=== PATIENT | female | born 1940 | race Caucasian/White ===

== ENCOUNTER 2017-11-10 15:07 | Inpatient (IN) | payer OTHER ==
[~2017-11-10] VITALS: Ht 167.6 cm; Wt 72.1 kg
[~2017-11-10 15:07] MED LIST: AMIT75TA2 PO; CITA20TA3 PO; LEVO25TA6 PO; PREG50CA PO
[2017-11-10] MEDS ORDERED: SODIUM CHLORIDE 0.9% 500 ML IVB ONE (18:55)
[2017-11-10] MEDS ORDERED: ONDANSETRON HCL 4 MG/2 ML VIAL IV ONE (19:00)
[2017-11-10] MEDS ORDERED: MORPHINE SULF INJ 2 MG/ML SYRINGE 1ML IV ONE (19:00)
[2017-11-10 20:54] LABS: Basophils # (auto) 0 uL; Basophils % (auto) 0.2 % (0.0-2.0); Eosinophils # (auto) 0.1 uL; Eosinophils % (auto) 0.6 % (0.0-7.0); Hematocrit 38.3 % (36.0-46.0); Hemoglobin 13.1 g/dL (12.2-16.2); Lymphocytes # (auto) 0.8 uL; Lymphocytes % (auto) 7.3 % (10.0-50.0); Mean Corpuscular Hemoglobin 31.1 pg (28.0-32.0); Mean Corpuscular Hgb Conc. 34.2 g/dL (32.0-36.0); Mean Corpuscular Volume 91.2 fL (80.0-100.0); Monocytes # (auto) 0.6 uL; Monocytes % (auto) 6.1 % (0.0-12.0); Neutrophils # (auto) 8.8 uL; Neutrophils % (auto) 85.8 % (37.0-80.0); Nucleated Red Blood Cells % 0.1 %; Platelet Count (auto) 198 10^3/uL (140-450); Red Cell Distribution Width 12.6 % (11.8-14.3); White Blood Cell 10.3 10^3/uL (4.4-10.8)
[2017-11-10 20:58] LABS: Alanine Aminotransferase 23 U/L (13-56); Albumin 3.8 g/dL (3.4-5.0); Anion Gap 8 (5-15); Aspartate Aminotransferase 29 U/L (15-37); BUN/Creatinine Ratio 6.5; Blood Urea Nitrogen 7 mg/dL (7-18); Calcium 8.8 mg/dL (8.5-10.1); Carbon Dioxide 29 mmol/L (21-32); Chloride 101 mmol/L (98-107); GFR African American 64 mL/min; GFR Non-African American 53 mL/min; Glucose 104 mg/dL (74-106); Magnesium 2.2 mg/dL (1.6-2.6); Potassium 4.1 mmol/L (3.5-5.1); Sodium 138 mmol/L (136-145)
[2017-11-10] MEDS ORDERED: DOCUSATE SOD 100 MG CAP PO PRN (21:00)
[2017-11-10] MEDS ORDERED: cloNIDine HCL 0.1 MG TAB PO PRN (21:00)
[2017-11-10] MEDS ORDERED: HYDROcodone-ACET 5/325MG TAB PO PRN (21:00)
[2017-11-10] MEDS ORDERED: ACETAMINOPHEN 325 MG TAB PO PRN (21:00)
[2017-11-10] MEDS ORDERED: ONDANSETRON HCL 4 MG/2 ML VIAL IV PRN (21:00)
[2017-11-10 21:02] LABS: Alkaline Phosphatase 75 U/L (45-117); Bilirubin, Total 0.5 mg/dL (0.2-1.0); Total Protein 7.4 g/dL (6.4-8.2)
[2017-11-10] MEDS: FAMOTIDINE 20 MG TAB PO SCH (22:00)
[2017-11-10 22:10] VITALS: BP 148/83
[2017-11-10 22:30] LABS: INR 1.04 (0.9-1.15); Partial Thromboplastin Time 25.9 sec (23.78-33.04); Prothrombin Time 11.1 sec (9.27-12.13)
[2017-11-10] MEDS: TEMAZEPAM 15 MG CAP PO PRN (23:44)
[2017-11-11 05:00] VITALS: BP 133/77
[2017-11-11] MEDS: MORPHINE SULF INJ 2 MG/ML SYRINGE 1ML IV PRN ×3 (05:02→17:15)
[2017-11-11 09:00] VITALS: BP 123/66
[2017-11-11] MEDS: ENOXAPARIN SOD 40 MG/0.4 ML SYRINGE SC SCH (10:34)
[2017-11-11] MEDS: FAMOTIDINE 20 MG TAB PO SCH ×2 (10:34→21:34)
[2017-11-11] MEDS: DOCUSATE SOD 100 MG CAP PO SCH ×2 (10:34→21:47)
[2017-11-11 13:00] VITALS: BP 137/76
[2017-11-11] MEDS ORDERED: DIAZEPAM 5 MG/ML 2ML SYRG IV ONE (15:15)
[2017-11-11 16:15] LABS: Urine Bacteria FEW /hpf (None Seen); Urine Blood Negative /uL (Negative); Urine Specific Gravity 1.004 (1.001-1.035); Urine WBC 1 /hpf (0 - 5)
[2017-11-11 17:00] VITALS: BP 130/68
[2017-11-11] MEDS ORDERED: BUPR100T14 PO (18:05)
[2017-11-11] MEDS ORDERED: ALBU2TAB4 PO (18:05)
[2017-11-11] MEDS ORDERED: LEVO50TA7 PO (18:05)
[2017-11-11] MEDS ORDERED: ATOR10TA52 PO (18:05)
[2017-11-11] MEDS ORDERED: EST0625T PO (18:05)
[2017-11-11] MEDS ORDERED: AMIT75TA2 PO (18:05)
[2017-11-11] MEDS ORDERED: ASPI81TA27 PO (18:05)
[2017-11-11] MEDS ORDERED: OMEP20TA PO (18:05)
[2017-11-11] MEDS ORDERED: CHOL50007 PO (18:13)
[2017-11-11] MEDS ORDERED: BUDE0.5S IN (18:13)
[2017-11-11] MEDS ORDERED: CARI350T22 PO (18:13)
[2017-11-11] MEDS ORDERED: ESCI10TA53 PO (18:13)
[2017-11-11] MEDS ORDERED: GABA300C10 PO (18:13)
[2017-11-11] MEDS ORDERED: LORA-622 PO (18:13)
[2017-11-11] MEDS: TEMAZEPAM 15 MG CAP PO PRN (21:43)
[2017-11-11 22:00] VITALS: BP 123/70
[2017-11-12 05:36] VITALS: BP 124/64
[2017-11-12 09:00] VITALS: BP 114/69
[2017-11-12] MEDS: ENOXAPARIN SOD 40 MG/0.4 ML SYRINGE SC SCH (10:00)
[2017-11-12] MEDS: FAMOTIDINE 20 MG TAB PO SCH (10:26)
[2017-11-12] MEDS: DOCUSATE SOD 100 MG CAP PO SCH (10:26)
[2017-11-12 13:00] VITALS: BP 118/59
[2017-11-12 15:21] VITALS: BP 114/69
== END 2017-11-12 15:40 | DRG 552 ==
LOC: ER 15:07 → OVERFLOW 15:08 → MERGE 15:08 → EAST 22:10
PROVIDERS: ADMIT Nurse Practitioner; ATTEND Family Medicine
DX: S22.050A Wedge compression fracture of T5-T6 vertebra, initial encounter for closed fracture (principal); Z88.2 Allergy status to sulfonamides; M79.7 Fibromyalgia; W18.39XA Other fall on same level, initial encounter; Y93.89 Activity, other specified; Y92.89 Other specified places as the place of occurrence of the external cause; Z82.49 Family history of ischemic heart disease and other diseases of the circulatory system; Z88.0 Allergy status to penicillin
CPT/HCPCS: 36415; 70450; 71250; 72128; 80053; 81001; 83735; 84484; 85025; 85610; 85730; 93005; 94761; 96361; 96374; 96375; 97163; J2405

== ENCOUNTER 2021-10-20 07:53 | Emergency (ER) | payer OTHER ==
[~2021-10-20] VITALS: Ht 170.2 cm; Wt 63.6 kg
[~2021-10-20 07:53] MED LIST changes: +ALBU2TAB4 PO; -AMIT75TA2 PO; +AMIT75TA4 PO; +ASPI-543 PO; +ATOR10TA52 PO; +BUDE0.5S IN; +BUPR-160 PO; +CARI350T22 PO; +CHOL50007 PO; +ESCI-28 PO; +EST0625T PO; +GABA300C10 PO; +LEVO50TA7 PO; +LORA-622 PO; +OMEP20TA PO
[2021-10-20] MEDS ORDERED: SODIUM CHLORIDE 0.9% 1,000 ML IV ONE (08:30)
[2021-10-20 08:48] LABS: Basophils # (auto) 0.1 10 ^3/uL (0-0.2); Eosinophils # (auto) 0.4 10 ^3/uL (0-0.8); Eosinophils % (auto) 5.8 % (0.0-7.0); Hematocrit 42.6 % (36.0-46.0); Hemoglobin 14.1 g/dL (12.2-16.2); Lymphocytes % (auto) 14.3 % (10.0-50.0); Mean Corpuscular Volume 93.9 fL (80.0-100.0); Monocytes # (auto) 0.7 10 ^3/uL (0-1.3); Monocytes % (auto) 10.4 % (0.0-12.0); Neutrophils # (auto) 4.6 10 ^3/uL (1.6-8.6); Neutrophils % (auto) 68.5 % (37.0-80.0); Red Blood Cells 4.53 10^6/uL (4.0-5.20); Red Cell Distribution Width 13.1 % (11.8-14.3); White Blood Cell 6.7 10^3/uL (4.4-10.8)
[2021-10-20 08:54] LABS: Albumin 3.5 g/dL (3.4-5.0); Calcium 9.2 mg/dL (8.5-10.1); Potassium 3.7 mmol/L (3.5-5.1)
[2021-10-20 08:57] LABS: BUN/Creatinine Ratio 8.5; Bilirubin, Total 0.4 mg/dL (0.2-1.0); Total Protein 6.9 g/dL (6.4-8.2)
[2021-10-20 10:00] VITALS: BP 138/84
[2021-10-20 10:09] LABS: Urine Bacteria FEW /hpf (None Seen); Urine Blood Negative /uL (Negative); Urine Mucus FEW (None Seen); Urine Specific Gravity 1.008 (1.001-1.035); Urine WBC 1 /hpf (0 - 5)
== END 2021-10-20 12:08 | disposition home or self-care (01) ==
LOC: ER 07:53
DX: M79.7 Fibromyalgia (principal); R07.89 Other chest pain; E11.9 Type 2 diabetes mellitus without complications; E03.9 Hypothyroidism, unspecified; J45.909 Unspecified asthma, uncomplicated; Z90.89 Acquired absence of other organs; Z20.822 Contact with and (suspected) exposure to COVID-19
CPT/HCPCS: 36415; 70450; 71045; 80053; 81001; 84484; 85025; 87426; 93005; 96360; 99285; J7030

== ENCOUNTER 2023-05-16 15:39 | Emergency (ER) | payer MEDICARE, OTHER ==
[~2023-05-16] VITALS: Ht 170.2 cm; Wt 58.0 kg
[~2023-05-16 15:39] MED LIST changes: +ALBU2TAB11 PO; -ALBU2TAB4 PO; -AMIT75TA4 PO; +AMIT75TA6 PO; -BUPR-160 PO; +BUPR-346 PO; -CARI350T22 PO; +CARI350T27 PO; -ESCI-28 PO; +ESCI1TAB36 PO; +GABA-1250 PO; -GABA300C10 PO
[2023-05-16 16:20] LABS: Basophils # (auto) 0 10 ^3/uL (0-0.2); Basophils % (auto) 0.6 % (0.0-2.0); Eosinophils # (auto) 0.2 10 ^3/uL (0-0.8); Eosinophils % (auto) 2.6 % (0.0-7.0); Hematocrit 39.3 % (36.0-46.0); Hemoglobin 13.3 g/dL (12.2-16.2); Lymphocytes % (auto) 16.1 % (10.0-50.0); Mean Corpuscular Hemoglobin 30.7 pg (28.0-32.0); Mean Corpuscular Hgb Conc. 33.8 g/dL (32.0-36.0); Mean Corpuscular Volume 90.8 fL (80.0-100.0); Monocytes # (auto) 0.5 10 ^3/uL (0-1.3); Monocytes % (auto) 8.3 % (0.0-12.0); Neutrophils # (auto) 4.5 10 ^3/uL (1.6-8.6); Neutrophils % (auto) 72.4 % (37.0-80.0); Red Blood Cells 4.32 10^6/uL (4.0-5.20); Red Cell Distribution Width 13.4 % (11.8-14.3); White Blood Cell 6.2 10^3/uL (4.4-10.8)
[2023-05-16 16:35] LABS: Alkaline Phosphatase 59 U/L (46-116)
[2023-05-16 16:36] LABS: Alanine Aminotransferase 10 U/L (7-40); Albumin 4.2 g/dL (3.2-4.8); Anion Gap 4 (5-15); Aspartate Aminotransferase < 8 U/L (13-40); BUN/Creatinine Ratio 14.1 (10.0-20.0); Bilirubin, Total 0.3 mg/dL (0.2-1.0); Blood Urea Nitrogen 12 mg/dL (9-23); Calcium 9.7 mg/dL (8.5-10.1); Carbon Dioxide 29 mmol/L (20-30); Chloride 104 mmol/L (98-107); Glucose 116 mg/dL (74-106); Potassium 3.8 mmol/L (3.5-5.1); Sodium 137 mmol/L (136-145); Total Protein 5.9 g/dL (5.7-8.2)
[2023-05-16 16:50] LABS: Magnesium 1.9 mg/dL (1.6-2.6)
[2023-05-16 18:07] LABS: Urine Bacteria FEW /hpf (None Seen); Urine Blood Negative /uL (Negative); Urine Clarity HAZY (Clear); Urine Color Colorless (Yellow); Urine Protein, UAD Negative (Negative); Urine Specific Gravity 1.009 (1.001-1.035); Urine Urobilinogen Normal (Negative); Urine WBC 1 /hpf (0 - 5); Urine pH 6.5 (5.0-8.0)
[2023-05-16 22:15] VITALS: BP 160/64; PULSE 78; RESP 16; O2SAT 94
[2023-05-16] MEDS: POTASSIUM EFFERVESENT TAB 25 MEQ PO ONE (22:26)
== END 2023-05-16 22:20 | disposition home or self-care (01) ==
LOC: ER 15:39
DX: R53.1 Weakness (principal); M54.50 Low back pain, unspecified; G89.29 Other chronic pain; M79.7 Fibromyalgia; R42 Dizziness and giddiness; J45.909 Unspecified asthma, uncomplicated; E11.9 Type 2 diabetes mellitus without complications
CPT/HCPCS: 36415; 70450; 71046; 80053; 81001; 83735; 84484; 85025; 93005